=== PATIENT | male | born 1970 | race Caucasian/White ===

== ENCOUNTER 2023-07-30 07:21 | Day surgery (SDC) | payer OTHER ==
[2023-07-30] MEDS ORDERED: Lactated Ringers 1,000 ML IV SCH (07:30)
[2023-07-30] MEDS ORDERED: Propofol 200 MG/20 ML SDV ONE ×3 (07:33→10:24)
[2023-07-30] MEDS ORDERED: fentaNYL 100 MCG/2 ML SDV ONE (07:34)
[2023-07-30] MEDS ORDERED: Midazolam 1 MG/ML 2 ML SDV ONE (07:34)
== END 2023-07-30 11:41 | disposition home or self-care (01) ==
LOC: JP.SDS 07:21
PROVIDERS: ATTEND Student in an Organized Health Care Education/Training Program
DX: R19.5 Other fecal abnormalities (principal); K57.30 Diverticulosis of large intestine without perforation or abscess without bleeding; E66.9 Obesity, unspecified; Z68.38 Body mass index [BMI] 38.0-38.9, adult; Z88.8 Allergy status to other drugs, medicaments and biological substances
CPT/HCPCS: 45380; 88305; J2250; J2704; J3010; J7120

== ENCOUNTER 2024-07-21 09:46 | Day surgery (SDC) | payer MEDICAID, OTHER ==
[~2024-07-21 09:46] MED LIST: Midazolam 1 MG/ML 2 ML SDV ONE; Propofol 200 MG/20 ML SDV ONE; fentaNYL 50 MCG/ML SDV ONE
[2024-07-21] MEDS: Lactated Ringers 1,000 ML IV SCH (10:19)
[2024-07-21] MEDS ORDERED: Propofol 200 MG/20 ML SDV ONE (10:42)
== END 2024-07-21 12:00 | disposition home or self-care (01) ==
LOC: JP.SDS 09:46
PROVIDERS: ATTEND Surgery
DX: Z12.11 Encounter for screening for malignant neoplasm of colon (principal); K63.5 Polyp of colon; K57.30 Diverticulosis of large intestine without perforation or abscess without bleeding; F17.200 Nicotine dependence, unspecified, uncomplicated; E78.5 Hyperlipidemia, unspecified; E66.9 Obesity, unspecified
CPT/HCPCS: 00811-QZ; 88305; J2250; J2704; J3010; J7120